=== PATIENT | female | born 1930 | race Caucasian/White ===

== ENCOUNTER 2020-04-27 19:46 | Emergency (ER) | payer MEDICARE ==
--- NOTE | 2020-04-27 20:15 | CT ---
CT head noncontrast HISTORY: Fall. Head injury. FINDINGS: There is no evidence of acute intracranial hemorrhage or infarct. Mild diffuse cortical atr ophy. 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 There is no mass effect or shift of midline structures. Visualized paranasal sinuses remain well aerated. Large area of hyperdense scalp hematoma and laceration overlies the right parietal occipital calvariu m. IMPRESSION : No acute intracranial abnormalities are demonstrated.
--- NOTE | 2020-04-27 20:21 | CT ---
CT CERVICAL SPINE WITHOUT CONTRAST: 04/27/20 HISTORY: Fall. Neck pain. FINDINGS: Multilevel degenerative changes are seen in the cervical spine. There is minimal anterolisthesis of C 4 over C5 and minimal retrolisthesis of C6 over C7 vertebral bodies. No acute fracture, traumatic sub luxation, or facet malalignment is identified. The prevertebral soft tissues are normal. Upper lung f ields are clear. IMPRESSION: No CT evidence of acute cervical spine fracture or traumatic subluxation. POS: [facility]
[2020-04-27 20:31] LABS: #Basophils 0.1 thou/uL (0.0-0.2); #Eosinphils 0.1 thou/uL (0.0-0.7); #Lymphocytes 2.6 thou/uL (1.20-3.40); #Monocytes 0.8 thou/uL (0.11-0.59); #Neutrophils 2.9 thou/uL (1.40-6.50); %Basophils 1.1 % (0.0-1.0); %Eosinophils 1.8 % (0.0-10.0); %Lymphocytes 39.7 % (21.0-51.0); %Monocytes 12.2 % (0.0-10.0); %Neutrophils 45.2 % (42.0-75.0); Hemoglobin 12.4 g/dL (12.0-16.0); Mean Corpuscular HGB CONC 33.6 g/dL (32.0-36.0); Mean Corpuscular Hemoglobin 31.6 pg (27.0-31.0); Mean Platelet Volume 7.4 fL (7.4-10.4); Platelet Count 246 thou/uL (130-400); RBC Distribution Width 11.1 % (11.5-14.5); Red Blood Cell (RBC) Count 3.91 mill/uL (4.20-5.40); White Blood Cell (WBC) Count 6.5 thou/uL (4.8-10.8)
[2020-04-27 20:53] LABS: ALT (SGPT) 11 U/L (8-55); AST (SGOT) 20 U/L (5-34); Alkaline Phosphatase 84 U/L (40-110); Anion Gap 12 mmol/L (10-20); BUN (Urea Nitrogen) 28 mg/dL (9.8-20.1); Bilirubin, Total 0.3 mg/dL (0.2-1.2); Calc. Creatinine Clearance 0 mL/min (70-130); Calcium 9.1 mg/dL (7.8-10.44); Carbon Dioxide 28 mmol/L (23-31); Chloride 100 mmol/L (98-107); Globulin 3.2 g/dL (2.4-3.5); Glucose 98 mg/dL (83-110); Potassium 4.7 mmol/L (3.5-5.1); Protein, Total 7.2 g/dL (6.0-8.3); Sodium 135 mmol/L (136-145)
[2020-04-27] MEDS ORDERED: Acetaminophen 500 MG TAB ONE (21:25)
== END 2020-04-27 21:31 | disposition home or self-care (01) ==
LOC: ERS 19:46
DX: S01.01XA Laceration without foreign body of scalp, initial encounter (principal); I10 Essential (primary) hypertension; I48.91 Unspecified atrial fibrillation; W01.198A Fall on same level from slipping, tripping and stumbling with subsequent striking against other object, initial encounter; Z79.899 Other long term (current) drug therapy; Z79.82 Long term (current) use of aspirin; Z79.01 Long term (current) use of anticoagulants
CPT/HCPCS: 12001; 70450; 72125; 80053; 85025

== ENCOUNTER 2020-05-28 09:58 | Inpatient (IN) | payer MEDICARE, SELFPAY ==
[2020-05-28 10:45] LABS: #Eosinphils 0.1 thou/uL (0.0-0.7); #Lymphocytes 1.5 thou/uL (1.20-3.40); #Monocytes 0.5 thou/uL (0.11-0.59); #Neutrophils 2.5 thou/uL (1.40-6.50); %Basophils 0.7 % (0.0-1.0); %Eosinophils 1.5 % (0.0-10.0); %Lymphocytes 32.7 % (21.0-51.0); %Monocytes 10.6 % (0.0-10.0); %Neutrophils 54.4 % (42.0-75.0); Hemoglobin 12.3 g/dL (12.0-16.0); Mean Corpuscular HGB CONC 32.2 g/dL (32.0-36.0); Mean Corpuscular Hemoglobin 31.1 pg (27.0-31.0); Mean Corpuscular Volume 96.4 fL (78.0-98.0); Mean Platelet Volume 7.4 fL (7.4-10.4); Platelet Count 235 thou/uL (130-400); RBC Distribution Width 11.1 % (11.5-14.5); Red Blood Cell (RBC) Count 3.97 mill/uL (4.20-5.40); White Blood Cell (WBC) Count 4.5 thou/uL (4.8-10.8)
[2020-05-28 11:37] LABS: ALT (SGPT) 12 U/L (8-55); AST (SGOT) 22 U/L (5-34); Albumin 3.7 g/dL (3.4-4.8); Alkaline Phosphatase 75 U/L (40-110); Anion Gap 13 mmol/L (10-20); BUN (Urea Nitrogen) 22 mg/dL (9.8-20.1); Bilirubin, Total 0.5 mg/dL (0.2-1.2); Calc. Creatinine Clearance 0 mL/min (70-130); Calcium 9.1 mg/dL (7.8-10.44); Carbon Dioxide 24 mmol/L (23-31); Chloride 106 mmol/L (98-107); Globulin 2.9 g/dL (2.4-3.5); Glucose 124 mg/dL (83-110); Potassium 4.4 mmol/L (3.5-5.1); Protein, Total 6.6 g/dL (6.0-8.3); Sodium 139 mmol/L (136-145)
[2020-05-28] MEDS ORDERED: Ondansetron ODT 4 MG TAB PO PRN (13:15)
[2020-05-28] MEDS ORDERED: Senokot S 8.6-50 MG TAB PO PRN (13:15)
[2020-05-28] MEDS ORDERED: Acetaminophen 325 MG TAB PO PRN (13:15)
[2020-05-28] MEDS ORDERED: Calcium Carbonate 500 MG ChewTAB PO PRN (13:15)
[2020-05-28] MEDS ORDERED: Sodium Chloride 0.9% 1,000 ML IV SCH (13:30)
[2020-05-28 14:16] LABS: Bilirubin Negative (Negative); Blood, Urine Negative (Negative); Clarity Clear (Clear); Glucose, Urine (Dipstick) Normal (Negative); Ketone, Urine Negative (Negative); Leukocyte 25 Leu/uL (Negative); Nitrite Negative (Negative); Protein, Urine (Dipstick) Negative (Neg-Trace); RBC/HPF 0-3 HPF (0-3); Specific Gravity, Urine 1.011 (1.002-1.036); Squamous Epithelial 0-3 HPF (0-3); Urobilinogen Normal mg/dL (Less than 2); pH, Urine 7.5 (5.0-9.0)
[2020-05-28 14:17] LABS: Bacteria/HPF 1+ HPF (None Seen)
[2020-05-28 14:32] VITALS: BMI 23.1
[2020-05-28 17:01] LABS: Troponin I 0.013 ng/mL (< 0.028)
[2020-05-28] MEDS: Apixaban 2.5 MG TAB PO SCH (20:54)
[2020-05-28] MEDS ORDERED: Apixaban 5 MG TAB PO SCH (21:00)
[2020-05-28] MEDS ORDERED: Flecainide 50 MG TAB PO SCH (21:00)
[2020-05-29] MEDS: hydrALAZINE 20 MG/ML VIAL SLOW IVP PRN ×2 (00:18→11:48)
[2020-05-29 05:44] LABS: Anion Gap 12 mmol/L (10-20); BUN (Urea Nitrogen) 16 mg/dL (9.8-20.1); Calc. Creatinine Clearance 36 mL/min (70-130); Calcium 8.6 mg/dL (7.8-10.44); Carbon Dioxide 24 mmol/L (23-31); Chloride 108 mmol/L (98-107); Glucose 108 mg/dL (83-110); Potassium 4.2 mmol/L (3.5-5.1); Sodium 140 mmol/L (136-145)
[2020-05-29 06:06] LABS: SARS-CoV-2 MS2 Positive; SARS-CoV-2 N Gene Negative; SARS-CoV-2 S Gene Negative; SARS-CoV-2 by NAA Not Detected (NotDetected); SARS-CoV-2 orf1ab Negative
[2020-05-29 06:52] LABS: #Eosinphils 0.1 thou/uL (0.0-0.7); #Lymphocytes 1.5 thou/uL (1.20-3.40); #Monocytes 0.7 thou/uL (0.11-0.59); %Basophils 0.6 % (0.0-1.0); %Monocytes 10.4 % (0.0-10.0); %Neutrophils 63.9 % (42.0-75.0); Hemoglobin 12.6 g/dL (12.0-16.0); Mean Corpuscular HGB CONC 32.6 g/dL (32.0-36.0); Mean Corpuscular Hemoglobin 31.1 pg (27.0-31.0); Mean Corpuscular Volume 95.2 fL (78.0-98.0); Mean Platelet Volume 7.6 fL (7.4-10.4); Platelet Count 240 thou/uL (130-400); RBC Distribution Width 11.3 % (11.5-14.5); Red Blood Cell (RBC) Count 4.06 mill/uL (4.20-5.40); White Blood Cell (WBC) Count 6.3 thou/uL (4.8-10.8)
[2020-05-29] MEDS: Apixaban 2.5 MG TAB PO SCH ×2 (09:24→21:27)
[2020-05-29] MEDS ORDERED: Ibuprofen 200 MG TAB PO PRN (10:11)
[2020-05-30] MEDS: hydrALAZINE 20 MG/ML VIAL SLOW IVP PRN ×2 (06:01→11:53)
[2020-05-30] MEDS: Apixaban 2.5 MG TAB PO SCH ×2 (11:52→20:54)
[2020-05-30] MEDS ORDERED: ADENOSINE 60 MG/20 ML VIAL ONE (13:21)
[2020-05-30] MEDS ORDERED: Amlodipine 5 MG TAB PO SCH (17:00)
[2020-05-30 18:09] LABS: Anion Gap 16 mmol/L (10-20); BUN (Urea Nitrogen) 19 mg/dL (9.8-20.1); Calc. Creatinine Clearance 29 mL/min (70-130); Calcium 9.2 mg/dL (7.8-10.44); Carbon Dioxide 19 mmol/L (23-31); Chloride 104 mmol/L (98-107); Glucose 105 mg/dL (83-110); Sodium 133 mmol/L (136-145)
[2020-05-30] MEDS ORDERED: Sodium Chloride 0.9% 500 ML IV SCH (18:45)
[2020-05-31] MEDS: Apixaban 2.5 MG TAB PO SCH (08:43)
[2020-05-31] MEDS ORDERED: Sodium Chloride 0.9% 500 ML IV SCH (09:00)
[2020-05-31] MEDS ORDERED: Amlodipine 5 MG TAB PO SCH (09:00)
[2020-05-31 11:56] VITALS: TEMP 97.5
[2020-05-31 12:06] LABS: Anion Gap 14 mmol/L (10-20); BUN (Urea Nitrogen) 14 mg/dL (9.8-20.1); Calc. Creatinine Clearance 34 mL/min (70-130); Calcium 8.6 mg/dL (7.8-10.44); Carbon Dioxide 23 mmol/L (23-31); Chloride 108 mmol/L (98-107); Glucose 79 mg/dL (83-110); Potassium 3.3 mmol/L (3.5-5.1); Sodium 142 mmol/L (136-145)
[2020-05-31] MEDS ORDERED: Potassium Chloride 20 MEQ TAB PO SCH (14:00)
[2020-05-31 15:58] VITALS: BP 135/63
== END 2020-05-31 17:15 | disposition home health service (06) | DRG 312 ==
LOC: ERS 09:58 → OBSVTOIN 13:43 → 2NO 13:43
PROVIDERS: ADMIT Internal Medicine; ATTEND Internal Medicine
DX: R55 Syncope and collapse (principal); N17.9 Acute kidney failure, unspecified; I50.32 Chronic diastolic (congestive) heart failure; I13.0 Hypertensive heart and chronic kidney disease with heart failure and stage 1 through stage 4 chronic kidney disease, or unspecified chronic kidney disease; I45.5 Other specified heart block; I48.0 Paroxysmal atrial fibrillation; N18.30 Chronic kidney disease, stage 3 unspecified; Z20.822 Contact with and (suspected) exposure to COVID-19; M19.90 Unspecified osteoarthritis, unspecified site; E87.5 Hyperkalemia; E78.5 Hyperlipidemia, unspecified; Z96.641 Presence of right artificial hip joint; Z91.81 History of falling; Z88.5 Allergy status to narcotic agent; Z88.1 Allergy status to other antibiotic agents; Z79.82 Long term (current) use of aspirin; Z79.01 Long term (current) use of anticoagulants; Z79.899 Other long term (current) drug therapy; Z85.3 Personal history of malignant neoplasm of breast
CPT/HCPCS: 36415; 71045; 78452; 80048; 80053; 81003; 81015; 83735; 84443; 84484; 85025; 87086; 87635; 93005; 93017; 93306; 96374; 96376; A9500; G0378; J0153; J0360; U0003

== ENCOUNTER 2020-10-15 10:21 | Outpatient (CLI) | payer MEDICARE | END 2020-10-15 10:22 | disposition home or self-care (01) | LOC: BICULT 10:21 | PROVIDERS: ATTEND Internal Medicine Nephrology | DX: N18.30 Chronic kidney disease, stage 3 unspecified (principal) | CPT/HCPCS: 76770 ==